=== PATIENT | male | born 2005 | race Two or more races ===

== ENCOUNTER 2024-01-01 12:45 | Inpatient (IN) | payer MEDICAID ==
[~2024-01-01] VITALS: Ht 177.8 cm; Wt 89.0 kg
[2024-01-01 15:56] LABS: Basophils # (auto) 0 10 ^3/uL (0-0.2); Basophils % (auto) 0.2 % (0.0-2.0); Eosinophils # (auto) 0 10 ^3/uL (0-0.8); Eosinophils % (auto) 0.5 % (0.0-7.0); Hematocrit 46.4 % (41.0-53.0); Hemoglobin 15.9 g/dL (13.5-17.5); Lymphocytes # (auto) 1.2 10 ^3/uL (0.4-5.4); Lymphocytes % (auto) 13.4 % (10.0-50.0); Mean Corpuscular Hgb Conc. 34.3 g/dL (32.0-36.0); Mean Corpuscular Volume 87.5 fL (80.0-100.0); Monocytes # (auto) 0.4 10 ^3/uL (0-1.3); Monocytes % (auto) 4.1 % (0.0-12.0); Neutrophils # (auto) 7.5 10 ^3/uL (1.6-8.6); Neutrophils % (auto) 81.8 % (37.0-80.0); Nucleated Red Blood Cells % 0.1 %; Platelet Count (auto) 227 10^3/uL (140-450); White Blood Cell 9.2 10^3/uL (4.4-10.8)
[2024-01-01 16:07] LABS: Alanine Aminotransferase 52 U/L (7-40); Albumin 4.8 g/dL (3.2-4.8); Alkaline Phosphatase 71 U/L (46-116); Anion Gap 7 (5-15); Aspartate Aminotransferase 22 U/L (13-40); BUN/Creatinine Ratio 11.1 (10.0-20.0); Bilirubin, Total 1.3 mg/dL (0.2-1.0); Blood Urea Nitrogen 9 mg/dL (9-23); Calcium 9.8 mg/dL (8.7-10.4); Carbon Dioxide 24 mmol/L (20-31); Chloride 105 mmol/L (98-107); Glucose 94 mg/dL (74-106); Sodium 136 mmol/L (136-145); Total Protein 7.6 g/dL (5.7-8.2)
[2024-01-01] MEDS ORDERED: MORPHINE SULFATE INJ 2 MG/ml SYRG IV PRN (18:30)
[2024-01-01] MEDS: SODIUM CHLORIDE 0.9% 1,000 ML IV ONE (18:34)
[2024-01-01] MEDS: PANTOPRAZOLE 40 MG/10 ML VIAL INJ IV ONE (18:37)
[2024-01-01] MEDS: GLUCAGON EMERG KIT 1mg/1ml IM ONE (18:44)
[2024-01-01] MEDS: GLUCAGON EMERG KIT 1mg/1ml IV ONE (18:45)
[2024-01-01 18:47] VITALS: PULSE 96; RESP 18; O2SAT 97
[2024-01-01 19:10] VITALS: PULSE 88; RESP 18; O2SAT 98
[2024-01-01] MEDS: SODIUM CHLORIDE 0.9% 1,000 ML IV SCH (19:13)
[2024-01-01 21:37] VITALS: BP 128/75; PULSE 106; RESP 18; TEMP 98.3; O2SAT 97
[2024-01-02] VITALS (7 sets, daily range): BP systolic 108–129; BP diastolic 53–77; PULSE 65–107; RESP 14–21; TEMP 97.9–99.3; O2SAT 96–99
[2024-01-02 07:23] LABS: Basophils # (auto) 0 10 ^3/uL (0-0.2); Basophils % (auto) 0.5 % (0.0-2.0); Eosinophils # (auto) 0.2 10 ^3/uL (0-0.8); Eosinophils % (auto) 2.4 % (0.0-7.0); Hematocrit 42.5 % (41.0-53.0); Hemoglobin 14.8 g/dL (13.5-17.5); Lymphocytes # (auto) 2.1 10 ^3/uL (0.4-5.4); Lymphocytes % (auto) 27.1 % (10.0-50.0); Mean Corpuscular Hemoglobin 30.6 pg (28.0-32.0); Mean Corpuscular Hgb Conc. 34.9 g/dL (32.0-36.0); Mean Corpuscular Volume 87.6 fL (80.0-100.0); Monocytes # (auto) 0.6 10 ^3/uL (0-1.3); Neutrophils # (auto) 4.7 10 ^3/uL (1.6-8.6); Nucleated Red Blood Cells % 0.1 %; Platelet Count (auto) 211 10^3/uL (140-450); Red Blood Cells 4.85 10^6/uL (4.5-5.90); White Blood Cell 7.6 10^3/uL (4.4-10.8)
[2024-01-02 07:51] LABS: Alanine Aminotransferase 46 U/L (7-40); Alkaline Phosphatase 61 U/L (46-116); Anion Gap 9 (5-15); BUN/Creatinine Ratio 14.5 (10.0-20.0); Blood Urea Nitrogen 10 mg/dL (9-23); Calcium 9.3 mg/dL (8.7-10.4); Carbon Dioxide 24 mmol/L (20-31); Chloride 107 mmol/L (98-107); Glucose 84 mg/dL (74-106); Potassium 3.5 mmol/L (3.5-5.1); Sodium 140 mmol/L (136-145)
[2024-01-02 07:52] LABS: Albumin 4.2 g/dL (3.2-4.8); Aspartate Aminotransferase 20 U/L (13-40)
[2024-01-02 07:53] LABS: Bilirubin, Total 1.7 mg/dL (0.2-1.0); Total Protein 6.6 g/dL (5.7-8.2)
[2024-01-02] MEDS ORDERED: ONDANSETRON HCL 4 MG/2 ML VIAL IV ONE (08:30)
[2024-01-02] MEDS ORDERED: MIDAZOLAM HCL 2MG/2ML 2ml VIAL (1mg/ml) ONE (08:34)
[2024-01-02] MEDS ORDERED: fentaNYL CITRATE 100 MCG/2 ML VL ONE (08:34)
[2024-01-02] MEDS ORDERED: PROPOFOL 10 MG/ML 20 ML IV ONE (08:52)
[2024-01-02] MEDS ORDERED: PANTOPRAZOLE 40 MG/10 ML VIAL INJ IV SCH (10:00)
[2024-01-02] MEDS: PANTOPRAZOLE 40 MG/10 ML VIAL INJ IV SCH (12:23)
[2024-01-02] MEDS: SUCRALFATE 1 GM/10 ML ORAL SUSP GT SCH (12:23)
[2024-01-02] MEDS ORDERED: PANT40TA2 PO (13:30)
[2024-01-02] MEDS ORDERED: SUCR1TAB31 OR (13:30)
== END 2024-01-02 17:40 | disposition home or self-care (01) | DRG 115 ==
LOC: ER 12:45 → OVERFLOW 18:41 → WEST WING 20:38
PROVIDERS: ADMIT Internal Medicine; ATTEND Internal Medicine
PROC: 0DB68ZX Excision of Stomach, Via Natural or Artificial Opening Endoscopic, Diagnostic (ICD-10-PCS; 2024-01-02)
PROC: 0DB48ZX Excision of Esophagogastric Junction, Via Natural or Artificial Opening Endoscopic, Diagnostic (ICD-10-PCS; 2024-01-02)
PROC: 0DB98ZX Excision of Duodenum, Via Natural or Artificial Opening Endoscopic, Diagnostic (ICD-10-PCS; principal; 2024-01-02 08:27)
DX: T17.298A Other foreign object in pharynx causing other injury, initial encounter (principal); K22.10 Ulcer of esophagus without bleeding; K44.9 Diaphragmatic hernia without obstruction or gangrene; K29.70 Gastritis, unspecified, without bleeding; Z83.42 Family history of familial hypercholesterolemia
CPT/HCPCS: 36415; 70491; 80053; 85025; 96361; 96374; 96375; G0378; J2250; J2470; J2704